=== PATIENT | female | born 1970 | race Caucasian/White ===

== ENCOUNTER → 2021-10-16 | Outpatient (CLI) | payer OTHER ==
[~2021-10-16] MED LIST: ALLEGRA ALLERG180 MG PO; OMNICEF 300 MG300 MG PO; PREDNISONE 20 M20 MG PO
== END ==
LOC: KOH-I 13:25
DX: M79.672 Pain in left foot (principal); M77.32 Calcaneal spur, left foot
CPT/HCPCS: 73650

== ENCOUNTER → 2021-11-19 | Outpatient (CLI) | payer OTHER | LOC: KOH-I 16:44 | DX: M79.672 Pain in left foot (principal) | CPT/HCPCS: 73630 ==